=== PATIENT | female | born 1990 | race Caucasian/White ===

== ENCOUNTER 2016-06-19 11:23 | Outpatient (CLI) | payer OTHER ==
[~2016-06-19] VITALS: Ht 152.4 cm; Wt 76.9 kg
[2016-06-19 11:43] VITALS: Ht 152.4 cm; Wt 76.9 kg
[2016-06-19 11:45] VITALS: BP 110/70; PULSE 90; RESP 18
[2016-06-19] MEDS ORDERED: PREN1TAB62 PO (11:47)
[2016-06-19 13:27] LABS: ADD SCAN DIFF NO
[2016-06-19 13:34] LABS: BASOPHILS % 0.2 % (0.0-2.0); EOSINOPHILS # 0.1 10^3/ul (0.0-0.5); HEMATOCRIT 34.9 % (37.0-47.0); HEMOGLOBIN 11.9 g/dl (12.0-16.0); LYMPHOCYTES # 1.6 10^3/ul (0.8-2.9); LYMPHOCYTES % 16.1 % (15.0-51.0); MEAN CORPUSCULAR HEMOGLOBIN 31.1 pg (29.0-33.0); MEAN CORPUSCULAR HGB CONC 34.1 g/dl (32.0-37.0); MEAN CORPUSCULAR VOLUME 91.1 fl (82.0-101.0); MONOCYTES % 10.1 % (0.0-11.0); NEUTROPHIL # 7.2 10^3/ul (1.6-7.5); NEUTROPHILS % 71.6 % (39.0-77.0); PLATELET COUNT 216 10^3/UL (140-415); RED BLOOD COUNT 3.83 10^6/ul (4.20-5.40); RED CELL DISTRIBUTION WIDTH 13.5 % (11.5-14.5); WHITE BLOOD COUNT 10.1 10^3/ul (4.8-10.8)
--- NOTE | 2016-06-19 13:44 | RADRPT ---
PROCEDURE: OB ultrasound for biophysical profile CLINICAL INDICATION: Biophysical profile. . TECHNIQUE: Multiple sonographic images of the pelvis were obtained. Transabdominal view of the gr avid uterus are available for review. The images were reviewed on a PACS workstation. COMPARISON: 04/01/2016 FINDINGS: Single intrauterine gestation. Presentation: Cephalic. Partially visualized placenta: Anterior. breathing movement = 2/2 tone = 2/2 motion = 2/2 BLAIRE = 2/2 BLAIRE = 10.1 cm heart rate: 127 beats per minute IMPRESSION: Single intrauterine gestation. Biophysical profile 11/11 RPTAT: AADD .Ajay Lopez MD, MD Date Time Electronically viewed and signed by .Ajay Lopez MD, on 06/19/2016 13:44 .B/
--- NOTE | 2016-06-19 13:49 | RADRPT ---
PROCEDURE: Obstetrical ultrasound. CLINICAL INDICATION: , evaluation. Pelvic pain. labor. TECHNIQUE: Transabdominal and transvaginal sonographic images of the pelvis are obtained. COMPARISON: No prior studies are available for comparison. FINDINGS: The cervix is closed with a length of 3.3 cm . Single intrauterine gestation. There is a cephalic presentation. Measurements were made in order to determine age. The results are as follows: BPD = 8.42 cm HC = 29.04 cm AC = 27.91 cm FL = 6.10 cm BLAIRE = 10.1 cm Heart rate = 142 beats per minute The placenta is anterior. There is no evidence for an abruption or placenta previa. Ovaries are not visualized. IMPRESSION: Single intrauterine gestation of approximately 32 weeks 3 days by ultrasound criteria. Estimated weight = 1189 g; 44 percentile for estimated ultrasound age. The cervix is closed with a length of 3.3 cm as visualized transvaginally. RPTAT: AADD .Ajay Lopez MD, MD Date Time Electronically viewed and signed by .Ajay Lopez MD, on 06/19/2016 13:49 .B/
[2016-06-19 14:05] LABS: ADD UMIC YES; URINE BILIRUBIN (Dip) NEGATIVE (NEGATIVE); URINE BLOOD (Dip) 3+ (NEGATIVE); URINE COLOR LT. YELLOW (YELLOW); URINE GLUCOSE (Dip) NEGATIVE (NEGATIVE); URINE KETONES (Dip) NEGATIVE (NEGATIVE); URINE LEUKOCYTE ESTERASE (Dip) 2+ (NEGATIVE); URINE NITRITE (Dip) NEGATIVE (NEGATIVE); URINE TOTAL PROTEIN (Dip) NEGATIVE (NEGATIVE); URINE UROBILINOGEN (Dip) 0.2 E.U./dL (0.1-1.0)
[2016-06-19 14:22] LABS: BACTERIA,URINE MODERATE; URINE RBCS 0-2 /HPF (0)
--- NOTE | 2016-06-19 15:48 | CONS ---
Date/Time of Note Date/Time of Note DATE: 06/19/16 TIME: 14:51 Consultation Date/Type/Reason Admit Date/Time June 19, 2016 OB Triage consult report Initial Consult Date This patient is a 25 years old 2 para 0 1 with EDC of August 15, 2016 which makes her 31 weeks and 6 days now She came to triage area complaining of vaginal spotting last night as well as today with some degree of pressure feeling on her lower abdomen; possible contractions. She was sent from the clinic to to triage for further evaluation On examination she is a well-developed well-nourished woman in no acute distress Her ear nose throat appear to be normal neck is normal no neck vein distention no thyromegaly No lymph node enlargement anywhere her body Abdomen is soft no evidence of any contraction fetus appears to be in vertex presentation Pelvic exam was not done but on ultrasound study there was no evidence of placental previa ,in fact the placenta was anterior with no evidence of evidence of abruption Her biophysical profile was reported 8/80 with BLAIRE of 10.1 cm Cervical length reported 3.3 cm Her lab tests were basically normal except for slight bloody discharge: 3+ blood on urine test as well as 2+ leukocyte esterase. Her urinalysis otherwise was normal .Her WBC was normal except for slight anemia with hemoglobin 10.9 hematocrit 34.9 platelet [id number]. Her blood type was O Rh+ with a negative antibody screen Laboratory Tests Test 06/19/16 12:35 Basophils # 0.010^3/ul Basophils % 0.2% Eosinophils # 0.110^3/ul Eosinophils % 1.0% Hematocrit 34.9% Hemoglobin 11.9g/dl Lymphocytes # 1.610^3/ul Lymphocytes % 16.1% Mean Corpuscular Hemoglobin 31.1pg Mean Corpuscular Hemoglobin Concent 34.1g/dl Mean Corpuscular Volume 91.1fl Mean Platelet Volume 9.0fl Monocytes # 1.010^3/ul Monocytes % 10.1% Neutrophils # 7.210^3/ul Neutrophils % 71.6% Nucleated Red Blood Cells # 0.010^3/ul Nucleated Red Blood Cells % 0.0/100WBC Platelet Count 94794^3/UL Red Blood Count 3.8310^6/ul Red Cell Distribution Width 13.5% Urine Amorphous Phosphates MANY Urine Bacteria MODERATE Urine Bilirubin NEGATIVE Urine Clarity SLIGHTLY CLOUDY Urine Coarse Granular Casts FEW Urine Color LT. YELLOW Urine Glucose NEGATIVE% Urine Hemoglobin 3+ Urine Ketones NEGATIVE Urine Leukocyte Esterase 2+ Urine Microscopic RBC 0-2/HPF Urine Microscopic WBC 0-2/HPF Urine Nitrite NEGATIVE Urine Specific [place] 1.015 Urine Total Protein NEGATIVE Urine Urobilinogen 0.2 E.U./dL Urine pH 7.5 White Blood Count 10.110^3/ul 24 HR Interval Summary Constitutional: No chills, No diaphoresis, No disoriented, No febrile, No improved, No no complaints, No other, No poor po, No requiring IVF, No requiring O2 Detailed Summary Eyes: No discharge, No no complaints, No other, No pain, No redness, No visual change ENT: No bleeding, No congestion, No discharge, No dysphagia, No no complaints, No other, No pain, No sore throat Respiratory: No cough, No no complaints, No other, No pain, No pleuritic pain, No shortness of breath, No sputum, No wheezing Cardiovascular: No chest pain, No edema, No lightheadedness, No no complaints, No orthopenea, No other, No palpitations, No paroxysmal nocturnal dyspnea Gastrointestinal: No blood, No constipation, No decreased appetite, No diarrhea , No flatus, No nausea, No no complaints, No other, No pain, No passing stool, No vomiting Genitourinary: No bleeding, No discharge, No dysuria, No flank pain, No hematuria, No no complaints, No other Musculoskeletal: No back pain, No bone/joint pain, No neck pain, No no complaints, No other, No restricted range of motion, No swelling Skin: No bruising, No erythema, No laceration, No no complaints, No other, No pruritis, No rash, No skin lesions Neurologic: No confusion, No dizziness, No focal-weakness, No headache, No no complaints, No other, No seizure, No syncope Endocrine: No dry skin, No no complaints, No other, No polydypsia, No polyuria , No temp intolerance Lymphatic: No adenopathy, No lymphadema, No no complaints, No other, No tender nodes Exam/Review of Systems Vital Signs Vitals Vital Signs Date Time Temp Pulse Resp B/P Pulse Ox O2 Delivery O2 Flow Rate FiO2 06/19/16 11:45 98.4 90 18 110/70 100 Room Air Results Result Diagram: 06/19/16 1235 Results 24 hrs Laboratory Tests Test 06/19/16 12:35 Basophils # 0.0 Basophils % 0.2 Eosinophils # 0.1 Eosinophils % 1.0 Hematocrit 34.9 L Hemoglobin 11.9 L Lymphocytes # 1.6 Lymphocytes % 16.1 Mean Corpuscular Hemoglobin 31.1 Mean Corpuscular Hemoglobin Concent 34.1 Mean Corpuscular Volume 91.1 Mean Platelet Volume 9.0 Monocytes # 1.0 H Monocytes % 10.1 Neutrophils # 7.2 Neutrophils % 71.6 Nucleated Red Blood Cells # 0.0 Nucleated Red Blood Cells % 0.0 Platelet Count 216 Red Blood Count 3.83 L Red Cell Distribution Width 13.5 Urine Amorphous Phosphates MANY Urine Bacteria MODERATE Urine Bilirubin NEGATIVE Urine Clarity SLIGHTLY CLOUDY Urine Coarse Granular Casts FEW Urine Color LT. YELLOW Urine Glucose NEGATIVE Urine Hemoglobin 3+ H Urine Ketones NEGATIVE Urine Leukocyte Esterase 2+ H Urine Microscopic RBC 0-2 Urine Microscopic WBC 0-2 Urine Nitrite NEGATIVE Urine Specific [place] 1.015 Urine Total Protein NEGATIVE Urine Urobilinogen 0.2 E.U./dL Urine pH 7.5 White Blood Count 10.1 ESTRELLA VUONG MD Jun 19, 2016 15:47
== END 2016-06-19 15:13 | disposition home or self-care (01) ==
LOC: OBT 11:23 → L-D 11:24 → OBT 15:13
PROVIDERS: ATTEND Obstetrics & Gynecology
DX: O26.853 Spotting complicating pregnancy, third trimester (principal); Z3A.31 31 weeks gestation of pregnancy
CPT/HCPCS: 76815; 76817; 76818; 81001; 85025; 86850; 86900; 86901; Z7500; 81003; G0463

== ENCOUNTER 2016-08-19 17:15 | Inpatient (IN) | payer OTHER ==
[~2016-08-19] VITALS: Ht 152.4 cm; Wt 82.9 kg
[~2016-08-19 17:15] MED LIST: PREN1TAB62 PO
--- NOTE | 2016-08-19 17:51 | RADRPT ---
PROCEDURE: Obstetrical ultrasound CLINICAL INDICATION: POST DATES TECHNIQUE: Multiple sonographic images of the pelvis were obtained. The images were reviewed on a PACS workstation. COMPARISON: Obstetrical ultrasound from 06/19/2016 FINDINGS: The cervix is not well visualized. There is a single viable intrauterine gestation. Cardiac activity is present with 148 beats per minute. There is a vertex presentation. The placenta is anterior. There is no evidence for an abruption or placenta previa. There is a subjectively normal amount of amniotic fluid. Measurements were made in order to determine age. The results are as follows (cm): BPD =9.55 HC =533.95 AC =36.73 FL =7.83 Estimated gestational age by ultrasound of approximately 39 weeks, 5 days. The estimated date of delivery by ultrasound is 08/21/2016. Estimated gestational age by LMP of approximately 40 weeks, 4 days. The estimated date of delivery by LMP was 08/15/2016. EFW = 3986 grams (71st percentile) IMPRESSION: Single viable intrauterine gestation of approximately 39 weeks, 5 days . The estimated date of delivery is 08/21/2016 . Dating by ultrasound is within 6 days of dating by LMP. Cephalic presentation. Normal BLAIRE. Estimated weight is in the 71st percentile. RPTAT: EE Physician Dorian Date Time Electronically viewed and signed by Physician Dorian on 08/19/2016 17:51 /
--- NOTE | 2016-08-19 17:52 | RADRPT ---
PROCEDURE: US OB biophysical profile. CLINICAL INDICATION: evaluation TECHNIQUE: Multiple sonographic images of the pelvis were obtained. The images were reviewed on a PACS workstation. COMPARISON: No prior studies are available for comparison. FINDINGS: There is a single viable intrauterine gestation. Cardiac activity is present with 148 beats per min cb. There is a vertex presentation. The placenta is anterior. There is no evidence of placental abruption. There is a mildly low amount of amniotic fluid with an BLAIRE = 7.1 cm. Biophysical profile: movement 2/2 tone 2/2. breathing 2/2 BLAIRE 2/2 Total 11/11 RPTAT: AA . IMPRESSION: Normal biophysical profile. Mildly low BLAIRE of 7.1 cm. Physician Dorian Date Time Electronically viewed and signed by Physician Dorian on 08/19/2016 17:51 /
[2016-08-19] MEDS ORDERED: OXYTOCIN 30 UNITS/LR 500 ML IV PRN (19:30)
[2016-08-19] MEDS ORDERED: IBUPROFEN 600 MG TAB PO PRN (19:30)
[2016-08-19] MEDS ORDERED: ACETAMINOPHEN/CODEINE #3 TAB PO PRN (19:30)
[2016-08-19] MEDS ORDERED: LIDOCAINE 1% (MPF) 30 ML INJ INJ PRN (19:30)
[2016-08-19] MEDS ORDERED: OXYTOCIN 30 UNITS/LR 500 ML IV SCH (19:30)
[2016-08-19] MEDS ORDERED: AMPICILLIN 2 GM/NS (PMX) 100 ML IV ONE (19:30)
[2016-08-19] MEDS ORDERED: BUTORPHANOL 2 MG INJ IV PRN ×2 (19:30)
[2016-08-19] MEDS ORDERED: METHYLERGONOVINE 0.2 MG INJ IM PRN (19:30)
[2016-08-19] MEDS ORDERED: CARBOPROST 250 MCG INJ IM PRN (19:30)
[2016-08-19] MEDS ORDERED: MISOPROSTOL 200 MCG TAB PR PRN (19:30)
[2016-08-19] MEDS ORDERED: LACTATED RINGER'S 1,000 ML IV PRN (19:35)
[2016-08-19] MEDS: LACTATED RINGER'S 1,000 ML IV SCH ×2 (19:54→23:04)
[2016-08-19 20:19] LABS: ADD SCAN DIFF NO
[2016-08-19 20:22] LABS: BASOPHILS % 0.1 % (0.0-2.0); EOSINOPHILS # 0.1 10^3/ul (0.0-0.5); EOSINOPHILS % 1.1 % (0.0-7.0); HEMATOCRIT 36.2 % (37.0-47.0); HEMOGLOBIN 12.5 g/dl (12.0-16.0); LYMPHOCYTES # 1.4 10^3/ul (0.8-2.9); LYMPHOCYTES % 19.1 % (15.0-51.0); MEAN CORPUSCULAR HEMOGLOBIN 31.4 pg (29.0-33.0); MEAN CORPUSCULAR HGB CONC 34.5 g/dl (32.0-37.0); MEAN PLATELET VOLUME 9.6 fl (7.4-10.4); MONOCYTE # 0.7 10^3/ul (0.3-0.9); MONOCYTES % 9.5 % (0.0-11.0); NEUTROPHIL # 5.2 10^3/ul (1.6-7.5); NEUTROPHILS % 69.7 % (39.0-77.0); PLATELET COUNT 188 10^3/UL (140-415); RED BLOOD COUNT 3.98 10^6/ul (4.20-5.40); RED CELL DISTRIBUTION WIDTH 13.3 % (11.5-14.5); WHITE BLOOD COUNT 7.4 10^3/ul (4.8-10.8)
[2016-08-19 20:41] LABS: ALANINE AMINOTRANSFERASE 29 IU/L (13-69); ALBUMIN 3.1 g/dl (3.3-4.9); ALBUMIN/GLOBULIN RATIO 1.06; ALKALINE PHOSPHATASE 235 IU/L (42-121); ANION GAP 10 (8-16); ASPARTATE AMINO TRANSFERASE 23 IU/L (15-46); BILIRUBIN,INDIRECT 0.5 mg/dl (0-1.1); BILIRUBIN,TOTAL 0.5 mg/dl (0.2-1.3); BLOOD UREA NITROGEN 13 mg/dl (7-20); CALCIUM 8.8 mg/dl (8.4-10.2); CARBON DIOXIDE 20 mmol/L (21-31); CHLORIDE 108 mmol/L (97-110); CREATININE 0.44 mg/dl (0.44-1.00); GLUCOSE 116 mg/dl (70-220); POTASSIUM 3.9 mmol/L (3.5-5.1); SODIUM 134 mmol/L (135-144)
[2016-08-19 20:59] LABS: ADD UMIC YES; URINE BILIRUBIN (Dip) NEGATIVE (NEGATIVE); URINE BLOOD (Dip) TRACE (NEGATIVE); URINE COLOR LT. YELLOW (YELLOW); URINE GLUCOSE (Dip) NEGATIVE (NEGATIVE); URINE KETONES (Dip) NEGATIVE (NEGATIVE); URINE LEUKOCYTE ESTERASE (Dip) 3+ (NEGATIVE); URINE NITRITE (Dip) NEGATIVE (NEGATIVE); URINE TOTAL PROTEIN (Dip) TRACE (NEGATIVE); URINE UROBILINOGEN (Dip) 0.2 E.U./dL (0.1-1.0)
[2016-08-19 20:59] LABS: INR 0.98; PARTIAL THROMBOPLASTIN TIME 27.8 Sec (25.0-35.0)
[2016-08-19 21:02] LABS: BACTERIA,URINE MANY; SQUAMOUS EPITHELIAL CELL,UR MANY; URINE RBCS 0-2 /HPF (0)
--- NOTE | 2016-08-19 21:53 | HP ---
Date/Time of Note Date/Time of Note DATE: 08/19/16 TIME: 21:49 OB - History Hx of Present Chief Complaint: post dates Estimated Due Date: August 15, 2016 : 1 Para: 0 Spontaneous : 0 Therapeutic : 0 Care: Good Care Ultrasounds: Normal mid trimester US Obstetrical Complications: None Medical Complications: None Past Family/Social History * Past Medical, Surgical, Family and Obstetric Histories reviewed from chart. GBS Status: Negative OB Admission Exam Physical Exam HEENT: WNL Heart: Rhythm Normal Lungs: Clear Abdomen: WNL Extremities: Normal Cervical Dilatation: None Effacement: 25% Station: -1 Membranes: Intact Heart Rate: 140's Accelerations: Accelerations Present Decelerations: No Decelerations Varibility: Moderate Last 72 hours Lab Results CBC & BMP 08/19/16 18:54 Liver Function Test 08/19/16 18:54 Alanine Aminotransferase (ALT/SGPT) 29 Albumin 3.1 L Alkaline Phosphatase 235 H Aspartate Amino Transf (AST/SGOT) 23 Direct Bilirubin 0.00 Total Protein 6.0 L OB Assessment/Plan Reason for admission: other (post dates) Plan: Induction Induction Method: per Misoprostol Protocol BETO SALES MD August 19, 2016 21:53
[2016-08-19] MEDS: MISOPROSTOL 25 MCG CAPSULE PO PRN (22:57)
[2016-08-19] MEDS ORDERED: AMPICILLIN 1 GM/NS (PMX) 50 ML IV SCH (23:30)
[2016-08-20] MEDS: MISOPROSTOL 25 MCG CAPSULE PO PRN ×3 (03:00→10:56)
[2016-08-20] MEDS: LACTATED RINGER'S 1,000 ML IV SCH ×3 (03:01→17:07)
[2016-08-20] MEDS ORDERED: FENTAnyl 2MCG/ML-ROPIV 0.2% 100 ML ONE (16:13)
[2016-08-20] MEDS ORDERED: NALOXONE (0.4 MG/ML) INJ IV PRN (17:00)
[2016-08-20] MEDS ORDERED: ONDANSETRON 4 MG INJ IV PRN (17:00)
[2016-08-20] MEDS ORDERED: DIPHENHYDRAMINE 50 MG INJ IV PRN (17:00)
[2016-08-21] MEDS: LACTATED RINGER'S 1,000 ML IV SCH ×3 (01:14→08:29)
[2016-08-21] MEDS: FENTAnyl 2MCG/ML-ROPIV 0.2% 100 ML BAG EPI SCH ×2 (01:37→09:46)
[2016-08-21] MEDS ORDERED: MINERAL OIL LIGHT 10 ML VIAL TOP ONE (08:00)
[2016-08-21] MEDS: OXYTOCIN 30 UNITS/LR 500 ML IV SCH ×2 (11:02→11:20)
[2016-08-21 13:07] LABS: RUBELLA ANTIBODY - IGG 1.16 index
[2016-08-21 13:54] VITALS: BP 112/55; PULSE 85; RESP 20
[2016-08-21] MEDS ORDERED: OXYTOCIN 30 UNITS/LR 500 ML IV PRN (14:30)
[2016-08-21] MEDS ORDERED: ACETAMINOPHEN/CODEINE #3 TAB PO PRN (14:30)
[2016-08-21] MEDS ORDERED: BENZOCAINE 20% 56 ML SPRAY TOP PRN (14:30)
[2016-08-21] MEDS ORDERED: ACETAMINOPHEN 325 MG TAB PO PRN (14:30)
[2016-08-21] MEDS ORDERED: METHYLERGONOVINE 0.2 MG INJ IM PRN (14:30)
[2016-08-21] MEDS ORDERED: WITCH HAZEL/GLYCERIN PAD PR PRN (14:30)
[2016-08-21] MEDS ORDERED: MISOPROSTOL 200 MCG TAB PR PRN (14:30)
[2016-08-21] MEDS ORDERED: DIBUCAINE 1% 30 GM OINT PR PRN (14:30)
[2016-08-21] MEDS ORDERED: CARBOPROST 250 MCG INJ IM PRN (14:30)
[2016-08-21] MEDS: IBUPROFEN 600 MG TAB PO SCH ×2 (15:07→18:11)
[2016-08-21 16:26] VITALS: BP 113/63; PULSE 83; RESP 20
[2016-08-21] MEDS: LACTATED RINGER'S 1,000 ML IV* SCH ×2 (19:30→22:03)
[2016-08-21 20:00] VITALS: BP 118/62; PULSE 109; RESP 20
[2016-08-22] MEDS: SENNA/DOCUSATE NA (8.6MG/50MG) TAB PO SCH ×3 (00:40→20:41)
[2016-08-22] MEDS: IBUPROFEN 600 MG TAB PO SCH ×4 (00:40→19:40)
[2016-08-22 04:37] VITALS: BP 112/67; RESP 18
[2016-08-22] MEDS: LACTATED RINGER'S 1,000 ML IV* SCH ×3 (06:03→22:03)
[2016-08-22 07:12] LABS: ADD SCAN DIFF NO
[2016-08-22 07:22] LABS: ABNORMAL IP MESSAGE 1; BASOPHILS % 0.2 % (0.0-2.0); EOSINOPHILS # 0.1 10^3/ul (0.0-0.5); EOSINOPHILS % 0.7 % (0.0-7.0); HEMOGLOBIN 9.8 g/dl (12.0-16.0); LYMPHOCYTES # 2.1 10^3/ul (0.8-2.9); LYMPHOCYTES % 11.7 % (15.0-51.0); MEAN CORPUSCULAR HEMOGLOBIN 31.2 pg (29.0-33.0); MEAN CORPUSCULAR HGB CONC 33.8 g/dl (32.0-37.0); MEAN CORPUSCULAR VOLUME 92.4 fl (82.0-101.0); MEAN PLATELET VOLUME 9.5 fl (7.4-10.4); MONOCYTE # 1.9 10^3/ul (0.3-0.9); MONOCYTES % 10.7 % (0.0-11.0); NEUTROPHIL # 13.7 10^3/ul (1.6-7.5); NEUTROPHILS % 76.1 % (39.0-77.0); PLATELET COUNT 162 10^3/UL (140-415); RED BLOOD COUNT 3.14 10^6/ul (4.20-5.40)
[2016-08-22 07:45] VITALS: BP 99/67; PULSE 76; RESP 18
--- NOTE | 2016-08-22 08:30 | OPPN ---
Date/Time of Note Date/Time of Note DATE: 08/22/16 TIME: 08:29 Post-Anesthesia Notes Post-Anesthesia Note Last documented vital signs Vital Signs Date Time Temp Pulse Resp B/P Pulse Ox O2 Delivery O2 Flow Rate FiO2 08/22/16 04:37 98.3 18 112/67 Room Air 08/21/16 20:00 109 Activity: WNL Respiratory function: WNL Cardiovascular function: WNL Mental status: Baseline Pain reasonably controlled: Yes Hydration appropriate: Yes Nausea/Vomiting absent: Yes ALTON QUIGLEY August 22, 2016 08:30
[2016-08-22 15:50] VITALS: BP 100/71; PULSE 76; RESP 16
--- NOTE | 2016-08-22 19:33 | LDN ---
Date/Time of Note Date/Time of Note DATE: 08/22/16 TIME: 19:26 Delivery Summary . Shoulder dystocia noted. Mc Waldo maneuver performed. Suprapubic pressure was given. Baby's shoulders and trunk subsequently delivered with no traction on baby's neck. Weeks of Gestation 40 weeks and 6 days. Placenta Delivered: Spontaneously Meconium: Light Episiotomy: No Perineal laceration: 2 Laceration repair: Second degree laceration repaired with 3-0 Vicryl and 3-0 chromic. Anesthesia type: Epidural Estimated blood loss: 400 Sponge & Needle done & correct: Yes All needle counts correct: Yes Any foreign bodies felt in the: No Problems: Infant Delivery Information Sex Infant Sex: male Apgars 1 Minute: 8 5 Minute: 9 Suctioning Nose & mouth suctioned at harry: Yes Delee suction performed: No Umbilical Cord Umbilical cord with: 3 Vessels Cord presentations: no nuchal cord Cord Blood was obtained: Yes Mother & Baby Disposition Disposition Mom & Baby to Maternity; Good: Yes BETO SALES MD August 22, 2016 19:33
--- NOTE | 2016-08-22 19:35 | QN ---
Documentation Comment No complaint Afebrile VSS Fundus firm Lochia scant PPD #1 Stable Continue with present care. BETO SALES MD August 22, 2016 19:35
[2016-08-22 19:40] VITALS: BP 110/60; PULSE 82; RESP 18
[2016-08-23] MEDS: IBUPROFEN 600 MG TAB PO SCH ×4 (00:39→18:31)
[2016-08-23 04:15] VITALS: BP 120/83; PULSE 86; RESP 18
[2016-08-23] MEDS: LACTATED RINGER'S 1,000 ML IV* SCH (06:03)
[2016-08-23 08:10] LABS: ADD SCAN DIFF NO
[2016-08-23 08:19] LABS: BASOPHILS % 0.2 % (0.0-2.0); EOSINOPHILS # 0.1 10^3/ul (0.0-0.5); HEMOGLOBIN 9.8 g/dl (12.0-16.0); LYMPHOCYTES # 2.1 10^3/ul (0.8-2.9); LYMPHOCYTES % 16.6 % (15.0-51.0); MEAN CORPUSCULAR HEMOGLOBIN 31.3 pg (29.0-33.0); MEAN CORPUSCULAR HGB CONC 33.8 g/dl (32.0-37.0); MEAN CORPUSCULAR VOLUME 92.7 fl (82.0-101.0); MEAN PLATELET VOLUME 9.4 fl (7.4-10.4); MONOCYTE # 1.3 10^3/ul (0.3-0.9); MONOCYTES % 10.3 % (0.0-11.0); NEUTROPHIL # 8.9 10^3/ul (1.6-7.5); NEUTROPHILS % 71.4 % (39.0-77.0); PLATELET COUNT 197 10^3/UL (140-415); RED BLOOD COUNT 3.13 10^6/ul (4.20-5.40); RED CELL DISTRIBUTION WIDTH 13.7 % (11.5-14.5); WHITE BLOOD COUNT 12.4 10^3/ul (4.8-10.8)
[2016-08-23 08:59] VITALS: BP 118/84; PULSE 103; RESP 18
[2016-08-23] MEDS ORDERED: DIPHTH/TET/ACEL PERTUSS (ADULT) 0.5 ML VIAL IM* ONE (09:00)
[2016-08-23] MEDS: SENNA/DOCUSATE NA (8.6MG/50MG) TAB PO SCH (09:10)
--- NOTE | 2016-08-23 15:00 | DS ---
Date/Time of Note Date/Time of Note DATE: 08/23/16 TIME: 14:59 Obstetrical Discharge Record Final Diagnosis Final Diagnosis: Term delivered Vaginal Delivery Obstetrical Delivery: Spontaneous Complications Induction: Yes Condition on Discharge Physical Assessment Voiding: Yes Bowel Movement: Yes Breast: Soft, non-tender Fundus: Firm Calf Tenderness: No Patient Condition: Stable BETO SALES MD August 23, 2016 15:00
[2016-08-23 16:00] VITALS: BP 123/72; PULSE 83; RESP 17
== END 2016-08-23 18:42 | disposition home or self-care (01) | DRG 775 ==
LOC: OBT 17:15 → L-D 17:16 → OBT 19:22 → L-D 19:22 → PP1 08-21 13:54
PROVIDERS: ADMIT Obstetrics & Gynecology; ATTEND Obstetrics & Gynecology
PROC: 3E0P7GC Introduction of Other Therapeutic Substance into Female Reproductive, Via Natural or Artificial Opening (ICD-10-PCS; 2016-08-19)
PROC: 10E0XZZ Delivery of Products of Conception, External Approach (ICD-10-PCS; principal; 2016-08-22)
PROC: 0KQM0ZZ Repair Perineum Muscle, Open Approach (ICD-10-PCS; 2016-08-22)
DX: O48.0 Post-term pregnancy (principal); O66.0 Obstructed labor due to shoulder dystocia; O70.1 Second degree perineal laceration during delivery; Z3A.40 40 weeks gestation of pregnancy; Z37.0 Single live birth
CPT/HCPCS: 36415; 62319; 76815; 76818; 80053; 81001; 81003; 85025; 85610; 85730; 86592; 86703; 86762; 86900; 86901; 87086; 87340; 90715; 99464; G0463; J2210; J2590; J3010; J7120